=== PATIENT | female | born 1940 | race Caucasian/White ===

== ENCOUNTER 2018-11-04 17:37 | Emergency (ER) | payer SELFPAY ==
[~2018-11-04] VITALS: Ht 152.4 cm; Wt 75.0 kg
[~2018-11-04 17:37] MED LIST: FAMO-96 PO; MAG355OR15 PO; NAPR-985 PO; OMEP20CA9 PO
[2018-11-04] MEDS ORDERED: FAMOTIDINE 20 MG TAB PO STA (17:49)
[2018-11-04] MEDS ORDERED: LIDOCAINE/MYLANTA 40 ML BTL PO STA (17:49)
[2018-11-04 17:51] VITALS: Ht 152.4 cm; Wt 75.0 kg
[2018-11-04] MEDS ORDERED: NICARDipine HCL 30 MG CAPSULE PO ONE (18:00)
[2018-11-04] MEDS ORDERED: ACETAMINOPHEN 325 MG TAB PO ONE (18:00)
[2018-11-04] MEDS ORDERED: AMLO-147 PO (18:29)
--- NOTE | 2018-11-04 20:04 | ERD ---
ER Documentation Chief Complaint Chief Complaint R889, sent fr clinic, HTN & AHUMADA, stopped taking her medications HPI During the patient's encounter translation services were utilized Language: [Bulgarian] Source: [in person] 78-year-old female who presents to the emergency room complaining of a mild headache. The patient states that approximately 1 week ago she self discontinued her blood pressure medication. She went to a clinic today because of her headache and her blood pressure was in the 200s. The headache is gradual onset, mild and frontal. Patient also describes chronic reflux symptoms and she self discontinued her Pepcid as well. She denies any chest pain or pressure. Her reflux symptoms are in the epigastrium and consistent with chronic reflux. ROS All systems reviewed and are negative except as per history of present illness. Medications Home Meds Active Scripts Amlodipine Besylate* (Norvasc*) 5 Mg Tablet, 5 MG PO DAILY for 30 Days, TAB Prov:TRINO MEDRANO MD 11/04/18 Reported Medications Amlodipine Besylate* (Amlodipine Besylate*) 10 Mg Tablet, 10 MG PO DAILY, #30 TAB 11/04/18 Discontinued Scripts Naproxen* (Naprosyn*) 500 Mg Tablet, 500 MG PO BID PRN for PAIN AND/OR INFLAMMATION, #30 TAB Prov:PRECIOUS LOUIS MD 09/22/15 Omeprazole* (Prilosec*) 20 Mg Capsule.dr, 40 MG PO DAILY, #30 CAP Prov:PRECIOUS LOUIS MD 09/22/15 Famotidine* (Pepcid*) 20 Mg Tablet, 20 MG PO BID for 14 Days, TAB Prov:PRECIOUS LOUIS MD 09/22/15 Mag Hydrox/Al Hydrox/Simeth (Maalox Max Strength Susp) 769 Ml Oral.susp, 2 TSP PO TID, #24 OZ Prov:PRECIOUS LOUIS MD 09/22/15 Allergies Allergies: Coded Allergies: losartan (Unverified Allergy, Unknown, ITCHING, 11/04/18) PMhx/Soc History of Surgery: No Anesthesia Reaction: No Hx Neurological Disorder: No Hx Respiratory Disorders: No Hx Cardiac Disorders: Yes (htn) Hx Psychiatric Problems: No Hx Miscellaneous Medical Probl: Yes (NEUROPATHY) Hx Alcohol Use: No Hx Substance Use: No Hx Tobacco Use: No FmHx Family History: No diabetes Physical Exam Vitals Vital Signs Date Temp Pulse Resp B/P (MAP) Pulse Ox O2 O2 Flow FiO2 Time Delivery Rate 11/04/18 98.4 18:08 11/04/18 98.4 66 16 217/138 100 Room Air 17:52 (164) 11/04/18 98.6 67 18 217/138 100 17:51 (164) Physical Exam General: Well developed, well nourished, no acute distress Head: Normocephalic, atraumatic. Eyes: Pupils equally reactive, EOM intact ENT: Moist mucous membranes Neck: Supple, no lymphadenopathy Respiratory: Lungs clear bilaterally, no distress Cardiovascular: RRR, no murmurs, rubs, or gallops Abdominal: Soft, non-tender, non-distended, no peritoneal signs : Deferred MSK: No edema, no unilateral swelling, 5/5 strength Neurologic: Alert and oriented, moving all extremities, normal speech, no focal weakness, no cerebellar signs Skin: No rash Psych: Normal mood Results 24 hrs Current Medications Medications Dose Sig/Irena Start Time Status Last (Trade) Ordered Route PRN Stop Time Admin Dose Reason Admin Nicardipine 30 mg ONCE ONCE 11/04/18 DC 11/04/18 HCl PO 18:00 18:07 (Cardene) 11/04/18 18:01 Famotidine 20 mg ONCE STAT 11/04/18 DC 11/04/18 (Pepcid) PO 17:49 18:07 11/04/18 17:52 40 ml ONCE STAT 11/04/18 DC 11/04/18 Miscellaneous PO 17:49 18:07 Medication 11/04/18 17:52 (Gi Cocktail (2)) 650 mg ONCE ONCE 11/04/18 DC 11/04/18 Acetaminophen PO 18:00 18:08 (Tylenol 11/04/18 18:01 Tab) Procedures/MDM EKG, MONITORS, & DIAGNOSTIC IMAGING: CT brain: Negative for acute process per radiologist read MEDICAL DECISION MAKING: The patient presents with headache in the setting of hypertension. This is consistent with hypertensive urgency. CT imaging would be appropriate given her age and headache and blood pressure. This is all likely secondary to the patient's self discontinuation of blood pressure medication. The patient additionally has dyspepsia consistent with chronic dyspepsia. I do not believe this is anginal equivalent. The patient describes many years of chronic discomfort and she self discontinued Pepcid. I do not believe that rapidly lowering the patient's blood pressure with IV medications as necessary. P.o. Cardene would be appropriate. The patient will be initiated on Norvasc as she does not want to take her prior medications that include amlodipine. ER COURSE: * P.o. Cardene was provided with dramatic improvement in blood pressure. * CT brain negative. * The patient can be safely discharged with outpatient primary care management. CONSULTATION: [None] DISPOSITION PLAN: The patient does not have an identifiable emergent medical condition that warrants inpatient hospitalization at this time. The patient is deemed safe for discharge with outpatient follow-up. We discussed follow up with the patient's primary care doctor within 24 to 48 hours as needed. We also discussed return to the emergency room for worsening symptoms or worsening condition. Outpatient referral: [None required] Discharge Medications: Norvasc Departure Diagnosis: Primary Impression: Hypertensive urgency Additional Impression: Noncompliance with medication regimen Condition: Stable TRINO MEDRANO MD Nov 04, 2018 20:04
[2018-11-04] MEDS ORDERED: AMLO5TAB4 PO (21:14)
[2018-11-04 21:15] VITALS: BP 121/52; PULSE 66; RESP 16
[2018-11-25] MEDS ORDERED: SULF1TAB31 PO (02:17)
[2018-11-25] MEDS ORDERED: IBUP-1542 PO (02:17)
== END 2018-11-04 21:30 | disposition home or self-care (01) ==
LOC: E/R 17:37
DX: I10 Essential (primary) hypertension (principal); Z91.14 Patient's other noncompliance with medication regimen
CPT/HCPCS: 70450